=== PATIENT | female | born 1960 | race Caucasian/White ===

== ENCOUNTER 2023-10-03 04:38 | Emergency (ER) | payer OTHER, SELFPAY ==
[2023-10-03 04:40] VITALS: BP 140/84
[2023-10-03 05:08] VITALS: BMI 25.4
[2023-10-03 05:51] LABS: COVID-19 Antigen Negative (Negative)
--- NOTE | 2023-10-03 06:00 | ED.GENMED ---
History of Present Illness
General
Chief Complaint: Cold/Flu/URI Symptoms
Source: patient
Time Seen by Provider: 10/03/23 05:07
Nursing documentation reviewed up to this point in time: agreed with
Travel History
Have you had any contact with someone who has COVID-19?: No
Do you have any symptoms of coronavirus? Fever > 100 degrees, chills, cough, shortness of breath, sore throat, loss of taste or smell, muscle aches, or headache?: No
History of Present Illness
History of Present Illness:
This is a 63-year-old female that presents with about 2 weeks of sinus congestion, sore throat, and nonproductive cough. Patient states that she has tried upzm-jsm-uwdkhjd medications without relief. She reports that she has a history of GERD and
is currently taking Prilosec. Denies fever, chills, nausea or vomiting. Reports no chest pain or shortness of breath.
Past History
Past History
ED Past Medical History: CVA and Other (Migraine headaches, CVA)
Social History
Personal:
Phy Exam
General Physical Exam
General Presentation: well appearing and no apparent distress
General Skin: warm and dry
General Habitus: normal
General Mental: alert
General Hydration: appears well hydrated
ENT Exam
ENT Exam: EOMI, TM's normal, neck supple, pharyngeal erythema (Minimal), swallowing well and other (Read from cough drops on the tongue)
Eye Exam
Eye Exam: PERRL and EOMI
Cardiovascular Exam
Cardiovascular Exam: regular rate/rhythm, no edema, no murmur and normal peripheral pulses
Pulmonary Exam
Pulmonary Exam: lungs clear, no respiratory distress, no rales, no crackles, no rhonchi, no stridor, no wheezing and no cough
Gastrointestinal Exam
Gastrointestinal Exam: normal bowel sounds, non tender, soft, no organomegaly, no pulsatile mass and non distended
Neurological Exam
Neurological Exam: alert, oriented x3, no motor deficits and speech normal
Musculoskeletal Exam
Musculoskeletal Exam: full ROM and no edema
Skin Exam
Skin Exam: normal color, warm/dry, no rash and no petechia
Psychiatric Exam
Psychiatric Exam: normal mood/affect
Course
Orders/Labs/Results
Orders:
Orders
10/03/23 05:15
COVID-19 Antigen Urgent
Source: Nasal Swab
Influenza A+B Rapid Molecular Urgent
[facility] Source: Nasal Swab
Specimen Description:
Rapid Strep Group A Urgent
[facility] Source: Throat/Pharynx
Specimen Description:
Date Specimen was Collected: 10/03/23
Time Specimen was Collected: 05:14
10/03/23 05:58
Doxycycline [Vibramycin] 100 mg PO NOW STA
Vital Signs
Initial and Last Documented VS:
Initial Vital Signs
Temp Pulse Resp BP Pulse Ox
98.8 F 70 22 140/84 100
10/03/23 04:40 10/03/23 04:40 10/03/23 04:40 10/03/23 04:40 10/03/23 04:40
Last Documented Vital Signs
Temp Pulse Resp BP Pulse Ox
98.8 F 70 22 140/84 100
10/03/23 04:40 10/03/23 04:40 10/03/23 04:40 10/03/23 04:40 10/03/23 04:40
*Critical Care Note
Total Time (30-74mins, 75-104mins- exclusive of procedures): Not Applicable
ED Attending Note
-
Portions of this chart may have been created with voice recognition software.� Occasional wrong word or��sound alike� substitutions may have occurred due to the inherent limitations of voice recognition software.
Discharge Plan
Departure
Patient Disposition: Home (Routine Discharge)
Date of Disposition: 10/03/23
Time of Disposition: 06:04
Patient with high blood pressure during this ER visit?: Yes
Condition: Good
Discharge Problem:
Sinusitis, Acute sore throat
Instructions: Viral Syndrome (DC), BLOOD PRESSURE
Prescriptions:
New
doxycycline hyclate 100 mg capsule
100 mg PO BID Qty: 10 0RF
sucralfate [Carafate] 100 mg/mL suspension
10 ml PO QID Qty: 200 0RF
No Action
zinc acetate 50 mg (zinc) Capsule
50 mg PO QPM
ascorbic acid (vitamin C) [Vitamin C] 500 mg Tablet
500 mg PO QPM
zolpidem 5 mg tablet
2.5 mg PO HS
Patient Comments:
08/09/2022: last filled 07/20/22, 30 tabs for 30 days from [facility]
cholecalciferol (vitamin D3) [Vitamin D3] 25 mcg (1,000 unit) Tablet
25 mcg PO QPM
jktfhulj-cth-klbkii-vit C-hyal [id number] mg Tablet
1 tab PO QPM
atorvastatin 40 mg Tablet
40 mg PO QPM Qty: 30 0RF
aspirin 81 mg Tablet,Chewable
81 mg PO DAILY Qty: 30 0RF
clopidogrel 75 mg Tablet
75 mg PO DAILY Qty: 28 0RF
Referrals:
Westley Siddiqui MD [Family Provider] -
Activity Restrictions/Additional Instructions:
It was a pleasure meeting you and taking part in your care. We hope for your continued healing and wellness.
Please read discharge instructions in their entirety. However, they are for general education and may not describe your exact diagnosis at discharge. Information on your ER visit and medical conditions were discussed with you along with appropriate
follow up information...
If indicated, please take your medications as instructed and indicated on discharge paperwork.
Please schedule a follow up appointment as directed. Call to schedule an appointment
Please return to the emergency department with ANY change in, persisting, or worsening of symptoms. If any of your symptoms do not improve, or persist, or become more severe within 6-12 hours, please return to the emergency department for further
care.
Please return to the emergency department if you develop a headache, neck pain/stiffness, fever greater than 100.4F, chest pain, shortness of breath, persistent nausea, vomiting, slurred speech, difficulty walking, numbness/tingling, weakness, signs
of infection or any other symptoms that are worrisome to you.
If you have any questions or concerns please do not hesitate to call the Hospital at or E-mail me directly at [email or web address]
Interventions
Interventions:
*Risk Screen - Suicide Last Done: 10/03/23 04:40
*General Assessment Last Done: 10/03/23 05:08
*Neglect/Abuse Screening Last Done: 10/03/23 04:40
ED- Fall Risk Assessment Last Done: 10/03/23 05:08
*ED COVID-19 Vaccine History Last Done: 10/03/23 05:08
IV-Rouxsp-Gwtccxreak Assessment Last Done: 10/03/23 05:08
ED- Pulmonary Assessment Last Done: 10/03/23 05:08
Discharge Date and Time
Print Language: LAO
[2023-10-03] MEDS: VIBRAMYCIN 100 MG PO (06:07)
== END 2023-10-03 06:40 | disposition home or self-care (01) ==
LOC: EMR 04:38
PROVIDERS: EMERGENCY PHYSICIAN Student in an Organized Health Care Education/Training Program; FAMILY PHYSICIAN Internal Medicine
DX: J02.9 Acute pharyngitis, unspecified (principal); J32.9 Chronic sinusitis, unspecified; R03.0 Elevated blood-pressure reading, without diagnosis of hypertension; Z11.52 Encounter for screening for COVID-19; Z86.73 Personal history of transient ischemic attack (TIA), and cerebral infarction without residual deficits
CPT/HCPCS: 99283; 87070; 87502; 87811; 87880

== ENCOUNTER 2024-02-15 04:53 | Emergency (ER) | payer BC, SELFPAY ==
[2024-02-15 04:57] VITALS: BP 155/88
[2024-02-15 05:46] VITALS: BMI 28.5
[2024-02-15 05:52] VITALS: BP 142/107
[2024-02-15] MEDS: NSS 1000 IV (06:20)
[2024-02-15 06:30] LABS: Urine Albumin Negative (Neg - Trace); Urine Bilirubin Negative (Negative); Urine Character Clear (Clear); Urine Color Yellow; Urine Glucose Negative (Negative); Urine Ketone Negative (Negative); Urine Leukocyte Negative (Negative); Urine Nitrite Negative (Negative); Urine Occult Blood Negative (Negative); Urine Urobilinogen Negative (Neg - 1+)
[2024-02-15 06:34] LABS: % Basophils 0.7 % (0-2); % Eosinophils 1.3 % (0-6); % Immature Granulocytes 1.2 % (0-0.5); % Lymphocytes 29.6 % (20.5-51.1); % Neutrophils 56.2 % (42.2-75.2); Absolute Basophils 0.1 10^3/uL (0-0.2); Absolute Eosinophils 0.1 10^3/uL (0-0.7); Absolute Immature Granulocytes 0.1 10^3/uL (0-0.05); Absolute Lymphocytes 3.2 10^3/uL (1.2-3.4); Absolute Monocytes 1.2 10^3/uL (0.1-0.6); Absolute Neutrophils 6.2 10^3/uL (1.4-6.5); Hematocrit 41.6 % (37.0-47.0); Mean Corp Hgb Conc. 33.7 g/dL (33.0-37.0); Mean Corpuscular Volume 89.3 fL (81.0-99.0); Mean Platelet Volume 9.8 fL (7.4-10.4); Nucleated Red Blood Cells % 0 %; Platelet Count 313 10^3/uL (130-400); Red Blood Cell Count 4.66 10^6/uL (4.20-5.40); Red Cell Dist. Width 12.9 % (11.5-14.5); White Blood Cell Count 10.9 10^3/uL (4.8-10.8)
--- NOTE | 2024-02-15 06:53 | ED.GENMED ---
History of Present Illness
General
Chief Complaint: Abdominal Pain
Source: patient
Exam Limitations: none
Time Seen by Provider: 02/15/24 06:42
History of Present Illness
History of Present Illness:
See MDM
Past History
Past History
ED Past Medical History: CVA and Other (Migraine headaches, CVA)
Social History
Personal:
Phy Exam
Physical Exam
Physical Exam:
See MDM
Course
Orders/Labs/Results
Orders:
Orders
02/15/24 06:17
Complete Blood Count/With Diff Urgent
Urinalysis Reflex To Culture Urgent
Date Specimen was Collected: 02/15/24
Time Specimen was Collected: 06:14
02/15/24 06:20
0.9% Sodium Chloride 1000 ml [Nss] 1,000 ml IV BOLUS
02/15/24 06:43
Apixaban [Eliquis] 5 mg PO ONCE ONE
02/15/24 06:52
Morphine Sulfate 4 mg IV NOW STA
Ondansetron Injectable [Zofran] 4 mg IV NOW STA
US Abdomen Complete/Upper Urgent
Comment:
Reason For Exam: RUQ pain
02/15/24 07:25
Comprehensive Metabolic Panel Urgent
Lipase Urgent
Abnormal Lab Results
02/15/24 02/15/24
06:17 07:25
WBC 10.9 H 10^3/uL
(4.8-10.8)
Abs Immat Gran (auto) 0.1 H 10^3/uL
(0-0.05)
Absolute Monos (auto) 1.2 H 10^3/uL
(0.1-0.6)
Immature Gran % 1.2 H %
(0-0.5)
Monocytes % 11.0 H %
(1.7-9.3)
BUN 6 L mg/dl
(7-17)
Glucose 112 H mg/dl
(70-99)
02/15/24 06:17
02/15/24 07:25
Vital Signs
Initial and Last Documented VS:
Initial Vital Signs
Temp Pulse Resp BP Pulse Ox
99.1 F 90 17 155/88 97
02/15/24 04:57 02/15/24 04:57 02/15/24 04:57 02/15/24 04:57 02/15/24 04:57
Last Documented Vital Signs
Temp Pulse Resp BP Pulse Ox
99.1 F 63 21 119/73 98
02/15/24 04:57 02/15/24 10:19 02/15/24 10:19 02/15/24 10:19 02/15/24 07:15
MDM/Problems Addressed
Differential Diagnosis Includes:
HPI and MDM Narrative:
63-year-old female presenting with upper abdominal pain. This has been ongoing for months. She was initially being treated for peptic ulcer disease but had a recent diagnostic endoscopy showing no evidence of ulceration. Patient had a CT in the
past showing evidence of gallstones. Patient believes she could be having a gallstone attack.
On exam, she is uncomfortable. She has right upper quadrant tenderness. She is afebrile. Given her history, will obtain ultrasound rule out gallstone pathology
Physical exam
General: Mildly uncomfortable
HEENT: protecting airway
Neck: appears supple
CV: No evidence of cyanosis
Resp: No accessory muscle use
Abd: Non-distended. Right upper quadrant tenderness without rebound
Extremities: No deformities
Neuro: alert
Psych: Normal affect
Skin: Intact
Problems Addressed including Acute and Chronic Conditions affecting care:
1. Right upper quadrant pain
Acuity: acute
Prognosis: stable
Details: Given her history of gallstones, will obtain ultrasound rule out acute calculus cholecystitis
Updates
Ultrasound shows cholelithiasis without evidence of acute cholecystitis. Discussed outpatient follow-up with general surgery
Differential Diagnosis (but not limited to): Symptomatic cholelithiasis, pancreatitis, acute calculus cholecystitis
Testing considered: CT abdomen/pelvis
Drug therapy (if applicable): OTC meds, please see d/c instruction regarding Rx drugs
Amount and/or Complexity of Data Reviewed
Clinical info obtained from: Patient
External data reviewed: N/A
Labs I independently reviewed (but not limited to): Mild leukocytosis
Radiology: Ultrasound report reviewed
Pulse Ox: not hypoxic
EKG independently reviewed: N/A
Human Resources Manager: N/A
Critical Care: N/A
Risk of Complication:
Social Determinants of health: Good social support
Discussed with other providers: N/A
Escalation of Care includes Admit/Obs: After being observed in the Emergency Department, pt stable for discharge.
Occasional wrong word or 'sound a like' substitutions may have occurred due to the inherent limitations of voice recognition software. Read the chart carefully and recognize, using context, where substitutions have occurred.
*Critical Care Note
Total Time (30-74mins, 75-104mins- exclusive of procedures): Not Applicable
ED Attending Note
-
Portions of this chart may have been created with voice recognition software.� Occasional wrong word or��sound alike� substitutions may have occurred due to the inherent limitations of voice recognition software.
Discharge Plan
Departure
Patient Disposition: Home (Routine Discharge)
Date of Disposition: 02/15/24
Time of Disposition: 10:46
Patient with high blood pressure during this ER visit?: No
Discharge Problem:
Symptomatic cholelithiasis
Instructions: Gallstones ED
Prescriptions:
New
tramadol 50 mg tablet
25 mg PO BID PRN (Reason: pain) Qty: 10 0RF
No Action
zinc acetate 50 mg (zinc) Capsule
50 mg PO QPM
ascorbic acid (vitamin C) [Vitamin C] 500 mg Tablet
500 mg PO QPM
cholecalciferol (vitamin D3) [Vitamin D3] 25 mcg (1,000 unit) Tablet
25 mcg PO QPM
alrvdzcp-adb-wvppcm-vit C-hyal [id number] mg Tablet
1 tab PO QPM
zolpidem [Ambien] 5 mg Tablet
2.5 mg PO HS
Eliquis 5 mg Tablet
5 mg PO BID
Referrals:
Juan Martínez MD [Active] -
PRIVATE,PHYSICIAN [Family Provider] -
Activity Restrictions/Additional Instructions:
Please return for any worsening symptoms.
You may return at any time if you have further concerns.
Please follow up with your doctor at the first available appointment, preferably this week.
You were given a prescription for narcotics. If you require this pain medicine, please take a daily [id number]-[id number] stool softener to avoid constipation.
Please make an appointment to see the general surgeon.
Thank you for choosing [facility].
Interventions
Interventions:
*Risk Screen - Suicide Last Done: 02/15/24 04:57
*General Assessment Last Done: 02/15/24 04:57
*Neglect/Abuse Screening Last Done: 02/15/24 04:57
ED- Fall Risk Assessment Last Done: 02/15/24 06:20
*ED COVID-19 Vaccine History Last Done: 02/15/24 04:57
HH-Shgjgh-Twrllmmzju Assessment Last Done: 02/15/24 06:20
Discharge Date and Time
Print Language: BAHRAINI
[2024-02-15 07:12] VITALS: BP 137/53
[2024-02-15] MEDS: ZOFRAN 4 MG IV (07:12)
[2024-02-15] MEDS: MORPHINE SULFATE 2 MG IV (07:12)
[2024-02-15 07:30] VITALS: BP 119/77
[2024-02-15 07:51] LABS: ALT (SGPT) 20 U/L (0-35); AST (SGOT) 20 U/L (14-36); Alkaline Phosphatase 124 U/L (38-126); Blood Urea Nitrogen 6 mg/dl (7-17); Carbon Dioxide 24 mmol/L (22-30); Chloride 105 mmol/L (98-107); Estimated Creatinine Clearance 80 ml/min; Glucose 112 mg/dl (70-99); Lipase 112 U/L (23-300); Potassium 3.9 mmol/L (3.5-5.1); Sodium 140 mmol/L (135-145); Total Bilirubin 0.6 mg/dl (0.2-1.3); Total Protein 6.5 g/dl (6.3-8.2); eGFR > 60.00
[2024-02-15] MEDS: ELIQUIS 5 MG PO (09:35)
[2024-02-15 10:19] VITALS: BP 119/73
[2024-02-15 11:00] VITALS: BP 99/71
== END 2024-02-15 11:25 | disposition home or self-care (01) ==
LOC: EMR 04:53
PROVIDERS: Student in an Organized Health Care Education/Training Program; EMERGENCY PHYSICIAN Student in an Organized Health Care Education/Training Program
DX: K80.20 Calculus of gallbladder without cholecystitis without obstruction (principal); Z86.73 Personal history of transient ischemic attack (TIA), and cerebral infarction without residual deficits
CPT/HCPCS: 99284; 76700; 80053; 81003; 83690; 85025

== ENCOUNTER → 2024-02-25 07:44 | Outpatient (REF) | payer BC, SELFPAY | LOC: RAD 07:44 | PROVIDERS: ATTENDING PHYSICIAN Surgery; FAMILY PHYSICIAN Internal Medicine | DX: R10.13 Epigastric pain (principal); K80.20 Calculus of gallbladder without cholecystitis without obstruction | CPT/HCPCS: 78226; A9537 ==